=== PATIENT | female | born 1985 | race Caucasian/White ===

== ENCOUNTER 2018-01-25 02:52 | Emergency (ER) | payer BC, SELFPAY ==
[2018-01-25] MEDS ORDERED: Ketorolac Tromethamine 60 MG/2 ML VIAL ONE (03:09)
[2018-01-25] MEDS ORDERED: Metoclopramide HCl 10 MG TAB ONE (04:22)
[2018-01-25] MEDS ORDERED: diphenhydrAMINE 25 MG CAP ONE (04:22)
== END 2018-01-25 04:31 | disposition home or self-care (01) ==
LOC: ERS 02:52
DX: R51 Headache (principal); E03.9 Hypothyroidism, unspecified; Z79.84 Long term (current) use of oral hypoglycemic drugs; Z79.899 Other long term (current) drug therapy
CPT/HCPCS: 96372; J1885

== ENCOUNTER 2018-04-02 08:41 | Emergency (ER) | payer SELFPAY ==
[2018-04-02 09:19] LABS: Bilirubin Negative (Negative); Blood, Urine Trace (Negative); Clarity CLEAR (Clear); Glucose, Urine (Dipstick) Negative (Negative); Leukocyte Small (Negative); Nitrite Negative (Negative); Protein, Urine (Dipstick) Negative (Neg-Trace); Specific Gravity, Urine 1.022 (1.002-1.036); pH, Urine 5.5 (5.0-9.0)
[2018-04-02 09:20] LABS: Pregnancy Test - Urine (BHCG) Negative (Negative); Pregu Control Background? CLEAR/WHITE (CLR/WHITE); Pregu Control Bar Appear? YES (CONTROL BAR); Specific Gravity 1.022 (1.002-1.036)
[2018-04-02 09:21] LABS: Bacteria/HPF 1+ HPF (None Seen); Hyaline Casts/LPF 4-6 HYALINE CAST LPF (0-3 Hyaline); Pathc Cast-AUWi Flag 0.87 (0-2.49); Squamous Epithelial 0-3 HPF (0-3)
[2018-04-02 09:29] LABS: RBC/HPF 0-3 HPF (0-3); Renal Epithelial 0-3 HPF (0-3); Transitional Epithelial 0-3 HPF (0-3)
[2018-04-02 09:33] LABS: ALT (SGPT) 18 U/L (8-55); AST (SGOT) 17 U/L (5-34); Albumin 4.2 g/dL (3.5-5.0); Alkaline Phosphatase 75 U/L (40-150); Anion Gap 11 mmol/L (10-20); BUN (Urea Nitrogen) 7 mg/dL (7.0-18.7); Bilirubin, Total 0.4 mg/dL (0.2-1.2); Calc. Creatinine Clearance 0 mL/min (70-130); Calcium 9.2 mg/dL (7.8-10.44); Carbon Dioxide 25 mmol/L (22-29); Chloride 103 mmol/L (98-107); Estimated GFR-MDRD 75; Globulin 3.2 g/dL (2.4-3.5); Glucose 116 mg/dL (70-105); Potassium 3.7 mmol/L (3.5-5.1); Protein, Total 7.4 g/dL (6.0-8.3); Sodium 135 mmol/L (136-145)
[2018-04-02 09:45] LABS: #Eosinphils 0.2 thou/uL (0.0-0.7); #Lymphocytes 3.3 thou/uL (1.20-3.40); #Monocytes 0.6 thou/uL (0.11-0.59); #Neutrophils 3.3 thou/uL (1.40-6.50); %Basophils 0.5 % (0.0-1.0); %Eosinophils 2.5 % (0.0-10.0); %Lymphocytes 44.4 % (21.0-51.0); %Monocytes 7.9 % (0.0-10.0); %Neutrophils 44.8 % (42.0-75.0); Hemoglobin 12.8 g/dL (12.0-16.0); Mean Corpuscular HGB CONC 33.2 g/dL (32.0-36.0); Mean Corpuscular Hemoglobin 28.7 pg (27.0-31.0); Mean Corpuscular Volume 86.4 fL (78.0-98.0); Mean Platelet Volume 7.8 fL (7.4-10.4); Platelet Count 367 thou/uL (130-400); RBC Distribution Width 13.3 % (11.5-14.5); Red Blood Cell (RBC) Count 4.45 mill/uL (4.20-5.40); White Blood Cell (WBC) Count 7.4 thou/uL (4.8-10.8)
--- NOTE | 2018-04-02 12:17 | ULT ---
PELVIC ULTRASOUND: Date: 04/02/18 COMPARISON: 03/18/18 HISTORY: Lower abdominal pain, pain radiating to the back. TECHNIQUE: Multiplanar Arteaga scale sonographic imaging of the pelvis is obtained with transabdominal and endovagi nal imaging. The ovaries are assessed with color flow and spectral analysis. FINDINGS: The uterus measures 7.3 x 4.4 x 3.5 cm. No uterine abnormality noted. Endometrial stripe measures 1.3 cm, within normal limits for a premenopausal female. Right ovary measures 3.7 x 2.9 x 2.2 cm. Left ovary measures 3.8 x 2.4 x 2.0 cm. The ovaries demonstr ate normal blood flow. No ovarian or adnexal mass. No free fluid seen in the pelvis. IMPRESSION: No acute findings. POS: [facility]
--- NOTE | 2018-04-02 12:26 | CT ---
CT ABDOMEN AND PELVIS [facility] CONTRAST STONE PROTOCOL: Date: 04/02/18 HISTORY: Abdominal pain. Left flank pain. COMPARISON: None. FINDINGS: Lung bases are clear. No pericardial effusion. No hydroureteronephrosis or nephroureterolithiasis. No secondary evidence of recently passed stone. N o calculi within the urinary bladder. No significant free fluid within the pelvis. Appendix is felt to be visualized and appears normal. Noncontrast evaluation of the liver, spleen, gallbladder, and pancreas are all unremarkable. Aortoili ac contour is nonaneurysmal. No retroperitoneal adenopathy. No dilated loops of large or small bowel. Mild degeneration of the pubic symphysis. Mild sclerosis of the L5-S1 disc space. IMPRESSION: 1. No acute inflammatory process in the abdomen or pelvis. 2. No nephroureterolithiasis or hydroureteronephrosis. No secondary evidence of recently passed ston e. 3. Normal appendix. POS: [facility]
[2018-04-02] MEDS ORDERED: Ibuprofen 800 MG TAB ONE (12:37)
== END 2018-04-02 12:35 | disposition home or self-care (01) ==
LOC: ERS 08:41
DX: N39.0 Urinary tract infection, site not specified (principal); E03.9 Hypothyroidism, unspecified; E28.2 Polycystic ovarian syndrome
CPT/HCPCS: 36415; 74176; 76856; 80053; 81003; 81015; 81025; 83690; 85025

== ENCOUNTER 2018-04-18 04:06 | Emergency (ER) | payer SELFPAY ==
[2018-04-18 04:52] LABS: #Basophils 0.1 thou/uL (0.0-0.2); #Eosinphils 0.2 thou/uL (0.0-0.7); #Monocytes 0.8 thou/uL (0.11-0.59); #Neutrophils 5.6 thou/uL (1.40-6.50); %Basophils 0.5 % (0.0-1.0); %Eosinophils 1.6 % (0.0-10.0); %Lymphocytes 37.7 % (21.0-51.0); %Monocytes 7.8 % (0.0-10.0); %Neutrophils 52.4 % (42.0-75.0); Hemoglobin 12.5 g/dL (12.0-16.0); Mean Corpuscular HGB CONC 34.4 g/dL (32.0-36.0); Mean Corpuscular Hemoglobin 29.1 pg (27.0-31.0); Mean Corpuscular Volume 84.6 fL (78.0-98.0); Mean Platelet Volume 7.3 fL (7.4-10.4); Platelet Count 396 thou/uL (130-400); RBC Distribution Width 13.2 % (11.5-14.5); White Blood Cell (WBC) Count 10.6 thou/uL (4.8-10.8)
[2018-04-18 04:58] LABS: PTT 33.1 SEC (22.9-36.1); Prothrombin Time 13.2 SEC (12.0-14.7)
[2018-04-18 05:06] LABS: ALT (SGPT) 17 U/L (8-55); AST (SGOT) 15 U/L (5-34); Albumin 4.5 g/dL (3.5-5.0); Alkaline Phosphatase 74 U/L (40-150); Anion Gap 12 mmol/L (10-20); BUN (Urea Nitrogen) 6 mg/dL (7.0-18.7); Bilirubin, Total 0.4 mg/dL (0.2-1.2); CK (CPK) 188 U/L (29-168); Calc. Creatinine Clearance 0 mL/min (70-130); Calcium 9.9 mg/dL (7.8-10.44); Carbon Dioxide 28 mmol/L (22-29); Chloride 102 mmol/L (98-107); Estimated GFR-MDRD 64; Globulin 3.3 g/dL (2.4-3.5); Glucose 101 mg/dL (70-105); Potassium 3.2 mmol/L (3.5-5.1); Protein, Total 7.8 g/dL (6.0-8.3); Sodium 139 mmol/L (136-145)
[2018-04-18 05:10] LABS: CKMB 1.3 ng/mL (0-6.6); Troponin I Less than 0.010 ng/mL (< 0.028)
[2018-04-18] MEDS ORDERED: Lidocaine Viscous Sol 2% 15 ml UD Cup ONE (05:43)
[2018-04-18] MEDS ORDERED: Mag-Al 1200 mg/1200 mg/30 ML UDCUP ONE (05:43)
[2018-04-18] MEDS ORDERED: Potassium Chloride 20 MEQ TAB ONE (05:47)
[2018-04-18] MEDS ORDERED: Ketorolac Tromethamine 30 MG/ML VIAL ONE (06:09)
[2018-04-18 06:19] LABS: Pregnancy Test - Urine (BHCG) Negative (Negative); Pregu Control Background? CLEAR/WHITE (CLR/WHITE); Pregu Control Bar Appear? YES (CONTROL BAR)
[2018-04-18 06:25] LABS: Specific Gravity 1.011 (1.002-1.036)
[2018-04-18 06:29] LABS: Bilirubin Negative (Negative); Blood, Urine Large (Negative); Clarity CLEAR (Clear); Glucose, Urine (Dipstick) Negative (Negative); Leukocyte Small (Negative); Nitrite Negative (Negative); Protein, Urine (Dipstick) Negative (Neg-Trace); Specific Gravity, Urine 1.011 (1.002-1.036); pH, Urine 5.5 (5.0-9.0)
[2018-04-18 06:31] LABS: Bacteria/HPF None Seen HPF (None Seen); Hyaline Casts/LPF 0-3 HYALINE CAST LPF (0-3 Hyaline); Pathc Cast-AUWi Flag 0.14 (0-2.49); RBC/HPF GREATER THAN 50-TNTC HPF (0-3); Squamous Epithelial 0-3 HPF (0-3)
--- NOTE | 2018-04-18 08:34 | RAD ---
PORTABLE CHEST ONE VIEW: 04/18/2018 4:19 a.m. HISTORY: Chest pain. FINDINGS: The heart size is normal. The lungs are well expanded without focal areas of consolidation, pneumoth orax, or pleural effusions. IMPRESSION: No radiographic evidence of acute cardiopulmonary process. POS: [facility]
== END 2018-04-18 07:15 | disposition home or self-care (01) ==
LOC: ERS 04:06
DX: R07.89 Other chest pain (principal); E03.9 Hypothyroidism, unspecified
CPT/HCPCS: 36415; 71045; 80053; 81003; 81015; 81025; 82553; 83880; 84443; 84484; 85025; 85379; 85610; 85730; 93005; 96372; J1885

== ENCOUNTER 2018-06-30 00:31 | Emergency (ER) | payer SELFPAY ==
[2018-06-30] MEDS ORDERED: Ketorolac Tromethamine 30 MG/ML VIAL ONE ×3 (00:51→00:53)
== END 2018-06-30 01:00 | disposition home or self-care (01) ==
LOC: SCSER 00:31
DX: J06.9 Acute upper respiratory infection, unspecified (principal); R51 Headache; E03.9 Hypothyroidism, unspecified
CPT/HCPCS: 96372; J1885

== ENCOUNTER 2019-04-16 20:42 | Emergency (ER) | payer SELFPAY ==
[2019-04-16] MEDS ORDERED: predniSONE 20 MG TAB ONE (20:59)
[2019-04-16] MEDS ORDERED: Metoclopramide HCl 10 MG TAB ONE (20:59)
== END 2019-04-16 21:06 | disposition home or self-care (01) ==
LOC: SCSER 20:42
DX: R51 Headache (principal); E03.9 Hypothyroidism, unspecified
CPT/HCPCS: 99283; J7512; J8597

== ENCOUNTER 2022-02-12 22:06 | Emergency (ER) | payer OTHER ==
[2022-02-12] MEDS ORDERED: Acetaminophen 500 MG TAB ONE (23:53)
[2022-02-12] MEDS ORDERED: diphenhydrAMINE 50 MG/ML VIAL ONE (23:53)
[2022-02-12] MEDS ORDERED: methylPREDNISolone Sod Succ/PF 125 MG/2 ML VIAL ONE (23:53)
[2022-02-12] MEDS ORDERED: Metoclopramide HCl 10 MG/2 ML VIAL ONE (23:54)
== END 2022-02-13 01:11 | disposition home or self-care (01) ==
LOC: ERS 22:06
DX: R51.9 Headache, unspecified (principal); E03.9 Hypothyroidism, unspecified
CPT/HCPCS: 70450; 96365; 96375; J1200; J2765; J2930

== ENCOUNTER 2022-08-25 08:31 | Outpatient (CLI) | payer OTHER | END 2022-08-25 08:32 | disposition home or self-care (01) | LOC: ULT 08:31 | PROVIDERS: ATTEND Physician Assistant | DX: R10.9 Unspecified abdominal pain (principal); K76.0 Fatty (change of) liver, not elsewhere classified; R93.3 Abnormal findings on diagnostic imaging of other parts of digestive tract | CPT/HCPCS: 76700 ==

== ENCOUNTER 2022-12-14 23:38 | Emergency (ER) | payer OTHER ==
[2022-12-15 00:15] LABS: #Eosinphils 0.2 thou/uL (0.0-0.7); #Lymphocytes 4.3 thou/uL (1.20-3.40); #Monocytes 0.9 thou/uL (0.11-0.59); #Neutrophils 5.6 thou/uL (1.40-6.50); %Basophils 0.2 % (0.0-1.0); %Eosinophils 2.2 % (0.0-10.0); %Lymphocytes 38.9 % (21.0-51.0); %Monocytes 7.9 % (0.0-10.0); %Neutrophils 50.8 % (42.0-75.0); Hemoglobin 12.2 g/dL (12.0-16.0); Mean Corpuscular HGB CONC 33.1 g/dL (32.0-36.0); Mean Corpuscular Hemoglobin 29.7 pg (27.0-31.0); Mean Corpuscular Volume 89.8 fl (78.0-98.0); Mean Platelet Volume 7.6 fL (7.4-10.4); Platelet Count 392 10x3/uL (130-400); RBC Distribution Width 13.1 % (11.5-14.5); Red Blood Cell (RBC) Count 4.11 mill/uL (4.20-5.40)
[2022-12-15 00:19] LABS: BHCG - Serum Negative (NEGATIVE); Pregs Control Background? CLEAR/WHITE (CLR/WHITE); Pregs Control Bar Appear? YES (CONTROL BAR)
[2022-12-15 00:28] LABS: ALT (SGPT) 16 U/L (8-55); AST (SGOT) 13 U/L (5-34); Alkaline Phosphatase 72 U/L (40-110); Anion Gap 13 mmol/L (10-20); BUN (Urea Nitrogen) 7 mg/dL (7.0-18.7); Bilirubin, Total 0.3 mg/dL (0.2-1.2); Calc. Creatinine Clearance 0 mL/min (70-130); Calcium 9.3 mg/dL (7.8-10.44); Carbon Dioxide 25 mmol/L (22-29); Chloride 105 mmol/L (98-107); Estimated GFR 90; Globulin 3.2 g/dL (2.4-3.5); Glucose 130 mg/dL (70-105); Potassium 3.9 mmol/L (3.5-5.1); Protein, Total 7.2 g/dL (6.0-8.3); Sodium 139 mmol/L (136-145)
== END 2022-12-15 01:39 | disposition left against medical advice (07) ==
LOC: ERS 23:38
DX: Z53.21 Procedure and treatment not carried out due to patient leaving prior to being seen by health care provider (principal)
CPT/HCPCS: 36415; 71045; 80053; 84484; 84703; 85025; 93005

== ENCOUNTER 2024-03-28 12:09 | Outpatient (CLI) | payer OTHER | END 2024-03-28 12:10 | disposition home or self-care (01) | LOC: SCSRAD 12:09 | PROVIDERS: ATTEND Physician Assistant | DX: K59.01 Slow transit constipation (principal) | CPT/HCPCS: 74019 ==

== ENCOUNTER 2024-09-15 09:12 | Emergency (ER) | payer OTHER ==
[2024-09-15 10:36] LABS: #Basophils Less than 0.03 10x3/uL (0.0-0.2); %Basophils 0.3 % (0.0-1.0); %Eosinophils 2.1 % (0.0-10.0); %Lymphocytes 38.9 % (21.0-51.0); %Monocytes 6.5 % (0.0-10.0); %Neutrophils 52.1 % (42.0-75.0); Hematocrit 38.7 % (36.0-47.0); Hemoglobin 12.7 g/dL (12.0-16.0); Mean Corpuscular HGB CONC 32.8 g/dL (32.0-36.0); Mean Corpuscular Hemoglobin 30.1 pg (27.0-31.0); Mean Corpuscular Volume 91.7 fL (78.0-98.0); Mean Platelet Volume 10.2 fL (7.4-10.4); Platelet Count 373 10x3/uL (130-400); RBC Distribution Width 14.1 % (11.5-14.5); Red Blood Cell (RBC) Count 4.22 mill/uL (4.20-5.40)
[2024-09-15 10:51] LABS: BHCG - Serum Negative (NEGATIVE); Pregs Control Bar Appear? YES (CONTROL BAR)
[2024-09-15 10:52] LABS: Pregs Control Background? CLEAR/WHITE (CLR/WHITE)
[2024-09-15 11:01] LABS: ALT (SGPT) 27 U/L (8-55); AST (SGOT) 34 U/L (5-34); Albumin 3.8 g/dL (3.5-5.0); Alkaline Phosphatase 69 U/L (40-110); Anion Gap 11 mmol/L (10-20); BUN (Urea Nitrogen) 9 mg/dL (7.0-18.7); Bilirubin, Total 0.7 mg/dL (0.2-1.2); Calc. Creatinine Clearance 0 mL/min (70-130); Calcium 9.2 mg/dL (7.8-10.44); Carbon Dioxide 24 mmol/L (22-29); Chloride 109 mmol/L (98-107); Estimated GFR 92; Globulin 3.4 g/dL (2.4-3.5); Glucose 113 mg/dL (70-105); Lipase 45 U/L (8-78); Potassium 3.9 mmol/L (3.5-5.1); Protein, Total 7.2 g/dL (6.0-8.3); Sodium 140 mmol/L (136-145)
[2024-09-15 11:54] LABS: Troponin I Less than 0.010 ng/mL (< 0.028)
== END 2024-09-15 15:57 ==
LOC: ERS 09:12
DX: R07.89 Other chest pain (principal); Z55.6 Problems related to health literacy
CPT/HCPCS: 36415; 71045; 80053; 83690; 84484; 84703; 85025; 93005

== ENCOUNTER 2025-08-26 08:56 | Emergency (ER) | payer OTHER ==
[2025-08-26 09:35] LABS: Pregnancy Test - Urine (BHCG) Negative (Negative); Pregu Control Background? CLEAR/WHITE (CLR/WHITE); Pregu Control Bar Appear? YES (CONTROL BAR)
[2025-08-26] MEDS ORDERED: Ondansetron PF 4 MG/2 ML Vial ONE (09:37)
[2025-08-26 09:56] LABS: CAUTI Indications for Culture Pelvic or flank pain; Glucose, Urine (Dipstick) Normal (Negative); Leukocyte 250 Leu/uL (Negative); Protein, Urine (Dipstick) Negative (Neg-Trace); Specific Gravity, Urine 1.013 (1.002-1.036)
[2025-08-26 09:57] LABS: Bacteria/HPF 1+ HPF (None Seen); Yeast-Budding 1+ HPF (None Seen)
[2025-08-26 09:58] LABS: Urine Culture Reflex No No
[2025-08-26 10:11] LABS: #Basophils Less than 0.03 10x3/uL (0.0-0.2); #Eosinophils 0.25 10x3/uL (0.0-0.7); #Monocytes 0.44 10x3/uL (0.11-0.59); #Neutrophils 4.56 10x3/uL (1.40-6.50); %Basophils 0.1 % (0.0-1.0); %Eosinophils 3.4 % (0.0-10.0); %Lymphocytes 28.6 % (21.0-51.0); %Monocytes 6.0 % (0.0-10.0); %Neutrophils 61.6 % (42.0-75.0); Hematocrit 40.0 % (36.0-47.0); Hemoglobin 12.5 g/dL (12.0-16.0); Mean Corpuscular Hemoglobin 28.7 pg (27.0-31.0); Mean Corpuscular Volume 92.0 fL (78.0-98.0); Platelet Count 350 10x3/uL (130-400); Red Blood Cell (RBC) Count 4.35 mill/uL (4.20-5.40); White Blood Cell (WBC) Count 7.39 10x3/uL (4.8-10.8)
[2025-08-26 10:22] LABS: ALT (SGPT) 35 U/L (Less than 34); AST (SGOT) 55 U/L (11-34); Albumin 3.8 g/dL (3.1-4.5); Alkaline Phosphatase 75 U/L (40-110); Anion Gap 12 mmol/L (10-20); BUN (Urea Nitrogen) 8 mg/dL (7.0-18.7); Bilirubin, Total 0.7 mg/dL (0.3-1.2); Calc. Creatinine Clearance 0 mL/min (70-130); Calcium 9.1 mg/dL (7.8-10.44); Carbon Dioxide 24 mmol/L (22-29); Chloride 107 mmol/L (98-107); Globulin 3.3 g/dL (2.4-3.5); Glucose 129 mg/dL (70-105); Lipase 26 U/L (8-78); Potassium 4.0 mmol/L (3.5-5.1); Sodium 139 mmol/L (136-145)
== END 2025-08-26 11:49 | disposition home or self-care (01) ==
LOC: ERS 08:56
DX: K80.20 Calculus of gallbladder without cholecystitis without obstruction (principal)
CPT/HCPCS: 76705; 80053; 81001; 81025; 83690; 85025; 96361; 96374; 96375; J2270; J2405